=== PATIENT | female | born 1980 | race Caucasian/White ===

== ENCOUNTER 2022-10-18 17:27 | Emergency (ER) | payer SELFPAY | END 2022-10-18 17:42 | disposition left against medical advice (07) | LOC: ER 17:35 | PROVIDERS: Emergency Provider Emergency Medicine Emergency Medical Services | DX: Z53.21 Procedure and treatment not carried out due to patient leaving prior to being seen by health care provider (principal) ==

== ENCOUNTER 2023-08-07 13:37 | Outpatient (OUT) | payer OTHER, SELFPAY ==
[2023-08-07 15:02] LABS: Alanine Aminotransferase 28 U/L (14-59); Albumin Globulin Ratio 0.7; Albumin Level 3.1 g/dL (3.4-5.0); Alkaline Phosphatase 100 U/L (46-116); Aspartate Amino Transferase 15 U/L (15-37); Bilirubin Direct 0.1 mg/dL (0.0-0.2); Bilirubin Total 0.5 mg/dL (0.2-1.0); Erythrocyte Sedimentation Rate >130 mm/hr (<=20); Globulin 4.5 g/dL; Total Protein 7.6 g/dL (6.4-8.2)
[2023-08-09 08:13] LABS: QuantiFERON-TB Gold Plus Negative (Negative)
== END 2023-08-07 13:38 | disposition home or self-care (01) ==
LOC: LAB 13:42
PROVIDERS: PCP Nurse Practitioner
DX: M08.00 Unspecified juvenile rheumatoid arthritis of unspecified site (principal); R76.8 Other specified abnormal immunological findings in serum; Z51.81 Encounter for therapeutic drug level monitoring
CPT/HCPCS: 36415; 80076; 85652; 86480